=== PATIENT | female | born 1945 | race Caucasian/White ===

== ENCOUNTER 2018-06-25 03:00 | Inpatient (IN) ==
[2018-06-25 06:23] LABS: Basophils % 0.4 % (0.0-0.8); Eosinophils % 0.2 % (0.00-10.9); Hematocrit 32.4 VOL% (35.7-47.0); Hemoglobin 10.2 GM/DL (12.0-16.0); Immature Granulocytes % 0.4 %; Immature Granulocytes Absolute 0.02 #; Lymphocytes # 0.8 10*3/uL (1.4-4.0); Lymphocytes % 14.5 % (21.3-54.2); Mean Corpuscular HGB Conc 31.5 GM/DL (32-36); Mean Corpuscular Hemoglobin 31 PG (27-34); Mean Corpuscular Volume 97.6 FL (87-102); Mean Platelet Volume 11.3 FL (9.6-12.0); Monocytes # 0.7 10*3/uL (0.11-0.8); Monocytes % 12.2 % (1.7-12.7); Neutrophils # 4.1 10*3/uL (1.4-7.4); Neutrophils % 72.3 % (38.7-73.9); Platelet Count 229 T/CUMM (130-400); Red Blood Count 3.32 MC/CUMM (3.8-5.5); White Blood Count 5.7 T/CUMM (4-12)
[2018-06-25 06:27] LABS: Apearance,Urine CLEAR (Clear); Bilirubin,Urine Negative (Negative); Blood, Urine Negative (Negative); Glucose,Urine (UA) Negative (Negative); Hyaline Casts,Urine 1 /LPF (0-3); Ketones,Urine Negative (Negative); Nitrite,Urine Negative (Negative); Protein,Urine Negative; RBC,Urine 2 /HPF (0-4); Urine Color Straw (Yellow); Urine Specific Gravity 1.017 (1.001-1.035); Urine Urobilinogen < 2.0 EU/DL (0.2-1.0); WBC,Urine 25 /HPF (0-6)
[2018-06-25 06:41] LABS: PT Patient Result 72.5 SECS
[2018-06-25 06:42] LABS: INR 6.8; Partial Thromboplastin Time 54.5 SECS (0-40)
[2018-06-25 07:05] LABS: Albumin 2.8 G/DL (3.4-5.0); Bilirubin,Total 0.8 MG/DL (0.2-1.0); Calcium 8.7 MG/DL (8.5-10.1); Osmolality,Calculated 271.2 MOS/KG (273-304); Potassium 4.1 MMOL/L (3.5-5.1); Thyroid Stimulating Hormone 2.92 uIU/ml (0.358-3.74); Total Protein 6.8 G/DL (6.4-8.3)
[2018-06-25] MEDS ORDERED: ALPRAZolam 0.25 MG TABLET PO PRN (07:43)
[2018-06-25] MEDS ORDERED: cefTRIAXone 1,000 MG in SYRINGE 1 EACH IV SCH (08:00)
[2018-06-25] MEDS ORDERED: CYANOCOBALAMIN 1000 MCG/1 ML VIAL IM SCH (08:00)
[2018-06-25] MEDS: ASPIRIN CHEW 81 MG TABLET PO SCH (08:27)
[2018-06-25] MEDS: FUROSEMIDE 40 MG/4 ML VIAL IV SCH ×2 (08:35→17:31)
[2018-06-25] MEDS ORDERED: PANTOPRAZOLE 40 MG TABLET PO SCH (09:00)
[2018-06-25] MEDS: CARVEDILOL 3.125 MG TABLET PO SCH ×2 (11:42→21:57)
[2018-06-25] MEDS: POTASSIUM CHLORIDE 20 MEQ TABLET PO SCH (11:43)
[2018-06-25] MEDS: GABAPENTIN 300 MG CAPSULE PO SCH ×2 (11:43→21:58)
[2018-06-25] MEDS: DIGOXIN 0.125 MG TABLET PO SCH (11:43)
[2018-06-25] MEDS ORDERED: LORazepam 2 MG/1 ML VIAL IV ONE (17:13)
[2018-06-25] MEDS ORDERED: ETOMIDATE 20 MG/10 ML VIAL IV ONE ×3 (17:43→17:50)
[2018-06-25] MEDS ORDERED: VECURONIUM 10 MG VIAL IV ONE ×2 (17:43→17:55)
[2018-06-25] MEDS ORDERED: fentaNYL 100 MCG/2 ML VIAL IV ONE (17:45)
[2018-06-25] MEDS ORDERED: fentaNYL 100 MCG/2 ML VIAL ONE (17:45)
[2018-06-25] MEDS ORDERED: PROPOFOL 1,000 MG/100 ML BOTTLE IV ONE (17:58)
[2018-06-25] MEDS: PROPOFOL 1,000 MG/100 ML BOTTLE IV SCH (18:41)
[2018-06-25 19:30] LABS: ABG Base Excess 3.4 MMOL/L (-2.5-2.5); ABG HCO3 27.2 MMOL/L (20-26); ABG Oxygen Saturation 99.9 % (95-100); ABG PCO2 38.1 MM HG (35-48); ABG PH 7.471 (7.35-7.45); ABG TCO2 28.3 MMOL/L (23-27); Allen Test Positive; Pt O2 Delivery Device Ventilator
[2018-06-25] MEDS: ONDANSETRON 4 MG/2 ML VIAL IV PRN ×2 (19:33→23:29)
[2018-06-25 20:47] LABS: Apearance,Urine CLEAR (Clear); Bilirubin,Urine Negative (Negative); Blood, Urine Large mg/dL (Negative); Glucose,Urine (UA) Negative (Negative); Hyaline Casts,Urine 1 /LPF (0-3); Ketones,Urine Negative (Negative); Mucus,Urine Occasional /LPF (Occasional); Nitrite,Urine Negative (Negative); Protein,Urine Negative; RBC,Urine 7 /HPF (0-4); Urine Color Yellow (Yellow); Urine Specific Gravity 1.004 (1.001-1.035); Urine Urobilinogen < 2.0 EU/DL (0.2-1.0); WBC,Urine 13 /HPF (0-6)
[2018-06-25 21:01] LABS: Calcium 8.3 MG/DL (8.5-10.1); Osmolality,Calculated 278.7 MOS/KG (273-304); Potassium 4.9 MMOL/L (3.5-5.1)
[2018-06-25] MEDS: TEMAZEPAM 15 MG CAPSULE PO SCH (21:58)
[2018-06-26 01:08] LABS: Basophils % 0.6 % (0.0-0.8); Eosinophils % 0.6 % (0.00-10.9); Hematocrit 30.8 VOL% (35.7-47.0); Hemoglobin 9.9 GM/DL (12.0-16.0); Immature Granulocytes % 0.6 %; Immature Granulocytes Absolute 0.04 #; Lymphocytes # 0.6 10*3/uL (1.4-4.0); Mean Corpuscular HGB Conc 32.1 GM/DL (32-36); Mean Corpuscular Hemoglobin 31 PG (27-34); Mean Corpuscular Volume 96.6 FL (87-102); Mean Platelet Volume 11.7 FL (9.6-12.0); Monocytes # 0.8 10*3/uL (0.11-0.8); Monocytes % 10.9 % (1.7-12.7); Neutrophils # 5.7 10*3/uL (1.4-7.4); Neutrophils % 79.3 % (38.7-73.9); Platelet Count 211 T/CUMM (130-400); Red Blood Count 3.19 MC/CUMM (3.8-5.5); Red Cell Distribution Width 16.1 % (9.3-17.3); White Blood Count 7.2 T/CUMM (4-12)
[2018-06-26 01:22] LABS: INR 5.1
[2018-06-26] MEDS: LORazepam 2 MG/1 ML VIAL IV PRN ×3 (01:30→23:00)
[2018-06-26 01:32] LABS: Calcium 8.4 MG/DL (8.5-10.1); Potassium 3.9 MMOL/L (3.5-5.1)
[2018-06-26 01:35] LABS: Albumin 2.6 G/DL (3.4-5.0); Bilirubin,Total 0.6 MG/DL (0.2-1.0); Calcium 8.4 MG/DL (8.5-10.1); Osmolality,Calculated 272.5 MOS/KG (273-304); Potassium 3.8 MMOL/L (3.5-5.1); Total Protein 6.5 G/DL (6.4-8.3)
[2018-06-26 04:04] LABS: ABG Base Excess 7.1 MMOL/L (-2.5-2.5); ABG HCO3 28.7 MMOL/L (20-26); ABG Oxygen Saturation 98.7 % (95-100); ABG PCO2 30.3 MM HG (35-48); ABG PO2 153.3 MM HG (80-95); ABG TCO2 29.6 MMOL/L (23-27); Allen Test Positive; Pt O2 Delivery Device Ventilator
[2018-06-26] MEDS: PHENYLEPHRINE DRIP 40 MG/250 ML PREMIX IV PRN ×2 (04:32→18:06)
[2018-06-26 04:36] LABS: ABG PH 7.594 (7.35-7.45)
[2018-06-26] MEDS: LEVOTHYROXINE 100 MCG TABLET PO SCH (07:25)
[2018-06-26] MEDS ORDERED: FUROSEMIDE INJ 100 MG in SODIUM CHLORIDE 0.9% 90 ML IV SCH (07:30)
[2018-06-26] MEDS ORDERED: VANCOMYCIN INJ 750 MG in SODIUM CHLORIDE 0.9% 250 ML IV PRN (07:41)
[2018-06-26] MEDS ORDERED: VANCOMYCIN INJ 1,000 MG in SODIUM CHLORIDE 0.9% 250 ML IV ONE (08:00)
[2018-06-26] MEDS: CEFEPIME 2,000 MG in SYRINGE 1 EACH IV SCH ×2 (08:41→20:30)
[2018-06-26] MEDS: GABAPENTIN 300 MG CAPSULE PO SCH ×2 (08:49→20:39)
[2018-06-26] MEDS: FUROSEMIDE 40 MG/4 ML VIAL IV SCH ×2 (08:49→18:05)
[2018-06-26] MEDS: DIGOXIN 0.125 MG TABLET PO SCH (08:49)
[2018-06-26] MEDS: ASPIRIN CHEW 81 MG TABLET PO SCH (08:50)
[2018-06-26] MEDS: CARVEDILOL 3.125 MG TABLET PO SCH ×2 (08:50→20:39)
[2018-06-26] MEDS: LANSOPRAZOLE ODT 30 MG TABLET PER TUBE SCH (08:56)
[2018-06-26] MEDS: IVABRADINE HCL 5 MG TABLET PO SCH ×2 (09:43→09:44)
[2018-06-26] MEDS ORDERED: LORazepam 2 MG/1 ML VIAL IV ONE (11:07)
[2018-06-26] MEDS: PROPOFOL 1,000 MG/100 ML BOTTLE IV SCH ×2 (11:15→22:17)
[2018-06-26] MEDS ORDERED: MIDAZOLAM 10 MG/2 ML VIAL ONE (11:17)
[2018-06-26] MEDS ORDERED: MIDAZOLAM 2 MG/2 ML VIAL IV ONE (11:20)
[2018-06-26] MEDS ORDERED: DEXTROSE 50% 25 GM/50 ML SYRINGE IV PRN (11:42)
[2018-06-26] MEDS ORDERED: GLUCAGON 1 MG VIAL IM PRN (11:42)
[2018-06-26] MEDS ORDERED: HEPARIN LOCK FLUSH 500 UNIT/5 ML SYRINGE IV PRN (12:50)
[2018-06-26] MEDS: INSULIN REGULAR 100 UNIT/ML SUBCUT SCH ×2 (12:54→18:30)
[2018-06-26] MEDS: TEMAZEPAM 15 MG CAPSULE PO SCH (20:40)
[2018-06-27] MEDS: PROPOFOL 1,000 MG/100 ML BOTTLE IV SCH (01:26)
[2018-06-27] MEDS: INSULIN REGULAR 100 UNIT/ML SUBCUT SCH ×4 (01:27→17:35)
[2018-06-27] MEDS: LORazepam 2 MG/1 ML VIAL IV PRN ×2 (03:55→22:42)
[2018-06-27 04:22] LABS: ABG Base Excess 8.8 MMOL/L (-2.5-2.5); ABG HCO3 32.6 MMOL/L (20-26); ABG Oxygen Saturation 99.8 % (95-100); ABG PCO2 36.5 MM HG (35-48); ABG PH 7.548 (7.35-7.45); ABG TCO2 28.6 MMOL/L (23-27)
[2018-06-27 04:33] LABS: Basophils % 0.6 % (0.0-0.8); Eosinophils # 0.3 10*3/uL (0.0-0.87); Eosinophils % 4.3 % (0.00-10.9); Hematocrit 29.2 VOL% (35.7-47.0); Hemoglobin 9.3 GM/DL (12.0-16.0); Immature Granulocytes % 0.6 %; Immature Granulocytes Absolute 0.04 #; Lymphocytes # 0.7 10*3/uL (1.4-4.0); Lymphocytes % 9.7 % (21.3-54.2); Mean Corpuscular HGB Conc 31.8 GM/DL (32-36); Mean Corpuscular Hemoglobin 31 PG (27-34); Monocytes # 0.9 10*3/uL (0.11-0.8); Monocytes % 12.3 % (1.7-12.7); Neutrophils # 5.2 10*3/uL (1.4-7.4); Neutrophils % 72.5 % (38.7-73.9); Platelet Count 246 T/CUMM (130-400); Red Blood Count 3.01 MC/CUMM (3.8-5.5); Red Cell Distribution Width 16.2 % (9.3-17.3); White Blood Count 7.1 T/CUMM (4-12)
[2018-06-27 04:52] LABS: Calcium 8.5 MG/DL (8.5-10.1); Osmolality,Calculated 279.1 MOS/KG (273-304); Potassium 3.2 MMOL/L (3.5-5.1)
[2018-06-27 04:56] LABS: Prealbumin 10.8 MG/DL (20-40)
[2018-06-27 05:03] LABS: INR 4.4
[2018-06-27 05:09] LABS: PT Patient Result 46.8 SECS
[2018-06-27] MEDS: LEVOTHYROXINE 100 MCG TABLET PO SCH (06:10)
[2018-06-27] MEDS: PHENYLEPHRINE DRIP 40 MG/250 ML PREMIX IV PRN (06:11)
[2018-06-27] MEDS ORDERED: POTASSIUM CHLORIDE RIDER 10 MEQ in PREMIX 1 EACH IV PRN (07:26)
[2018-06-27] MEDS: LANSOPRAZOLE ODT 30 MG TABLET PER TUBE SCH (10:39)
[2018-06-27] MEDS: DIGOXIN 0.125 MG TABLET PO SCH (10:39)
[2018-06-27] MEDS: CARVEDILOL 3.125 MG TABLET PO SCH ×2 (10:39→20:40)
[2018-06-27] MEDS: POTASSIUM CHLORIDE 20 MEQ TABLET PO SCH (10:40)
[2018-06-27] MEDS: ASPIRIN CHEW 81 MG TABLET PO SCH (10:40)
[2018-06-27] MEDS: GABAPENTIN 300 MG CAPSULE PO SCH ×2 (10:40→20:40)
[2018-06-27] MEDS: VANCOMYCIN INJ 750 MG in SODIUM CHLORIDE 0.9% 250 ML IV SCH (10:41)
[2018-06-27] MEDS: CEFEPIME 2,000 MG in SYRINGE 1 EACH IV SCH ×2 (10:41→20:57)
[2018-06-27] MEDS: FUROSEMIDE 40 MG/4 ML VIAL IV SCH ×2 (10:43→17:34)
[2018-06-27] MEDS: POTASSIUM CHLORIDE 20 MEQ TABLET PO PRN (20:40)
[2018-06-28] MEDS: INSULIN REGULAR 100 UNIT/ML SUBCUT SCH ×4 (00:18→17:25)
[2018-06-28] MEDS: ACETAMINOPHEN 325 MG TABLET PO PRN ×2 (02:23→22:30)
[2018-06-28 05:38] LABS: ABG Base Excess 8.9 MMOL/L (-2.5-2.5); ABG HCO3 32.7 MMOL/L (20-26); ABG Oxygen Saturation 99.2 % (95-100); ABG PCO2 44.1 MM HG (35-48); ABG PH 7.486 (7.35-7.45); ABG TCO2 30.2 MMOL/L (23-27)
[2018-06-28 06:06] LABS: Basophils % 0.2 % (0.0-0.8); Eosinophils # 0.3 10*3/uL (0.0-0.87); Eosinophils % 6.2 % (0.00-10.9); Hematocrit 29.5 VOL% (35.7-47.0); Hemoglobin 9.2 GM/DL (12.0-16.0); Immature Granulocytes % 0.4 %; Immature Granulocytes Absolute 0.02 #; Lymphocytes # 0.5 10*3/uL (1.4-4.0); Lymphocytes % 11.6 % (21.3-54.2); Mean Corpuscular HGB Conc 31.2 GM/DL (32-36); Mean Corpuscular Hemoglobin 31 PG (27-34); Mean Platelet Volume 11.8 FL (9.6-12.0); Monocytes # 0.7 10*3/uL (0.11-0.8); Monocytes % 14.9 % (1.7-12.7); Neutrophils % 66.7 % (38.7-73.9); Platelet Count 171 T/CUMM (130-400); Red Blood Count 3.01 MC/CUMM (3.8-5.5); Red Cell Distribution Width 15.7 % (9.3-17.3); White Blood Count 4.6 T/CUMM (4-12)
[2018-06-28 06:21] LABS: Calcium 8.7 MG/DL (8.5-10.1); Osmolality,Calculated 273.2 MOS/KG (273-304); Potassium 3.4 MMOL/L (3.5-5.1)
[2018-06-28 06:29] LABS: PT Patient Result 31.8 SECS
[2018-06-28] MEDS: LEVOTHYROXINE 100 MCG TABLET PO SCH (06:34)
[2018-06-28] MEDS: POTASSIUM CHLORIDE 20 MEQ TABLET PO PRN ×3 (06:44→12:45)
[2018-06-28] MEDS: CEFEPIME 2,000 MG in SYRINGE 1 EACH IV SCH (09:40)
[2018-06-28] MEDS: LANSOPRAZOLE ODT 30 MG TABLET PER TUBE SCH (09:44)
[2018-06-28] MEDS: GABAPENTIN 300 MG CAPSULE PO SCH ×2 (09:44→21:02)
[2018-06-28] MEDS: ASPIRIN CHEW 81 MG TABLET PO SCH (09:44)
[2018-06-28] MEDS: VANCOMYCIN INJ 750 MG in SODIUM CHLORIDE 0.9% 250 ML IV SCH (09:45)
[2018-06-28] MEDS: CARVEDILOL 3.125 MG TABLET PO SCH ×2 (09:48→21:02)
[2018-06-28] MEDS: FUROSEMIDE 40 MG/4 ML VIAL IV SCH (10:49)
[2018-06-28] MEDS: DIGOXIN 0.125 MG TABLET PO SCH (10:50)
[2018-06-28] MEDS ORDERED: BISACODYL 5 MG TABLET PO PRN (14:23)
[2018-06-28] MEDS: DOCUSATE SODIUM 100 MG CAPSULE PO SCH ×2 (14:40→21:02)
[2018-06-28] MEDS ORDERED: WARFARIN 3 MG TABLET PO SCH (18:00)
[2018-06-28] MEDS: ONDANSETRON 4 MG/2 ML VIAL IV PRN (21:02)
[2018-06-29] MEDS: INSULIN REGULAR 100 UNIT/ML SUBCUT SCH ×2 (00:52→06:15)
[2018-06-29 05:03] LABS: ABG Base Excess 8.3 MMOL/L (-2.5-2.5); ABG HCO3 32.1 MMOL/L (20-26); ABG Oxygen Saturation 99.2 % (95-100); ABG PCO2 39.6 MM HG (35-48); ABG PH 7.515 (7.35-7.45); ABG TCO2 29.1 MMOL/L (23-27); Allen Test Positive
[2018-06-29 05:50] LABS: Basophils % 0.6 % (0.0-0.8); Eosinophils # 0.3 10*3/uL (0.0-0.87); Eosinophils % 4.8 % (0.00-10.9); Hematocrit 31.1 VOL% (35.7-47.0); Hemoglobin 9.5 GM/DL (12.0-16.0); Immature Granulocytes % 0.4 %; Immature Granulocytes Absolute 0.02 #; Lymphocytes # 0.7 10*3/uL (1.4-4.0); Lymphocytes % 12.6 % (21.3-54.2); Mean Corpuscular HGB Conc 30.5 GM/DL (32-36); Mean Corpuscular Hemoglobin 31 PG (27-34); Mean Platelet Volume 12.2 FL (9.6-12.0); Monocytes # 0.8 10*3/uL (0.11-0.8); Monocytes % 14.7 % (1.7-12.7); Neutrophils # 3.5 10*3/uL (1.4-7.4); Neutrophils % 66.9 % (38.7-73.9); Platelet Count 219 T/CUMM (130-400); Red Blood Count 3.11 MC/CUMM (3.8-5.5); Red Cell Distribution Width 15.5 % (9.3-17.3); White Blood Count 5.2 T/CUMM (4-12)
[2018-06-29 05:58] LABS: INR 2.8
[2018-06-29 06:03] LABS: PT Patient Result 30.5 SECS
[2018-06-29 06:08] LABS: Calcium 9.3 MG/DL (8.5-10.1); Osmolality,Calculated 271.2 MOS/KG (273-304); Potassium 3.9 MMOL/L (3.5-5.1)
[2018-06-29] MEDS: LEVOTHYROXINE 100 MCG TABLET PO SCH (06:28)
[2018-06-29] MEDS: ONDANSETRON 4 MG/2 ML VIAL IV PRN (06:37)
[2018-06-29] MEDS: LORazepam 2 MG/1 ML VIAL IV PRN (06:37)
[2018-06-29] MEDS ORDERED: LORazepam 0.5 MG TABLET PO PRN (08:27)
[2018-06-29] MEDS ORDERED: FUROSEMIDE 40 MG/4 ML VIAL IV SCH (09:00)
[2018-06-29] MEDS: DIGOXIN 0.125 MG TABLET PO SCH (09:27)
[2018-06-29] MEDS: GABAPENTIN 300 MG CAPSULE PO SCH (09:27)
[2018-06-29] MEDS: ASPIRIN CHEW 81 MG TABLET PO SCH (09:28)
[2018-06-29] MEDS: DOCUSATE SODIUM 100 MG CAPSULE PO SCH (09:28)
[2018-06-29] MEDS: CARVEDILOL 3.125 MG TABLET PO SCH (09:28)
[2018-06-29] MEDS: LANSOPRAZOLE ODT 30 MG TABLET PER TUBE SCH (09:28)
[2018-06-29] MEDS: POTASSIUM CHLORIDE 20 MEQ TABLET PO SCH (09:29)
[2018-06-29] MEDS ORDERED: ALPRAZolam 0.25 MG TABLET PO PRN (09:42)
[2018-06-29] MEDS ORDERED: TUBERCULIN SKIN TEST 0.1 ML SYRINGE INTRADERM ONE (10:39)
[2018-06-29] MEDS ORDERED: ONDANSETRON 4 MG TABLET PO ONE (16:26)
[2018-06-29 16:34] VITALS: BP 86/51
[2018-06-29] MEDS ORDERED: TEMAZEPAM 15 MG CAPSULE PO SCH (21:00)
== END 2018-06-29 16:43 | disposition swing bed (61) | DRG 291 ==
LOC: EDUNIT# → EDBD → N.ED 03:00 → SUATTDRO 03:46 → N.EDINP 03:46 → N.TELEN 04:24 → N.CC 17:46 → N.TELEN 06-28 16:06
PROVIDERS: ADMIT Internal Medicine Nephrology; ATTEND Internal Medicine